=== PATIENT | female | born 1955 | race Caucasian/White ===

== ENCOUNTER 2023-12-28 09:14 | Inpatient (IN) | payer OTHER, MEDICAID, MEDICARE ==
[~2023-12-28] VITALS: Ht 154.9 cm; Wt 52.2 kg
[2023-12-28] VITALS (36 sets, daily range): BP systolic 63–146; BP diastolic 35–126; PULSE 106–136; RESP 16–54; TEMP 37.11408–38.1416; O2SAT 94–100
[2023-12-28] MEDS: SODIUM CHLORIDE 0.9% 1,000 ML IV ONE ×2 (09:35→10:40)
[2023-12-28 09:43] LABS: HEMOGLOBIN. 11.8 g/dL (12.0-16.0); MEAN CORPUSCULAR HEMOGLOBIN 27.8 pg (28.0-32.0); MEAN CORPUSCULAR HGB CONC 31.8 g/dL (31.0-37.0); MEAN CORPUSCULAR VOLUME 87.4 fL (81.0-99.0); MEAN PLATELET VOLUME 8.8 fl (7.4-10.4); PLATELET 243 x1000/uL (130-400); RED BLOOD CELL COUNT 4.24 mill/uL (4.2-5.4); RED CELL DISTRIBUTION WIDTH 13.8 % (11.6-14.6)
[2023-12-28 09:46] LABS: DIFFERENTIAL COMMENT 1
[2023-12-28 09:47] LABS: BG CARBOXYHEMOGLOBIN 0.5 % (0.5-1.5); BG HCO3 ACT 18.4 mmol/L (21.0-28.0); BG METHEMOGLOBIN 0.2 % (0.5-1.5); BG OXYHEMOGLOBIN 95.3 % (94.0-98.0); BG PCO2 32.7 mmHg (32.0-45.0); BG PH 7.369 (7.350-7.450); BG PO2 94.2 mmHg (83.0-108.0); BG SAMPLE SITE RIGHT BRACHIAL; BG TOTAL HEMOGLOBIN 10.5 g/dL (12.0-16.0); BG VENT MODE NASAL CANNULA
[2023-12-28 09:50] LABS: CHLORIDE 103 mEq/L (98-107); POTASSIUM 3.5 mEq/L (3.5-5.1); SODIUM 136 mEq/L (136-145)
[2023-12-28 09:51] LABS: CALCIUM 8.7 mg/dL (8.7-10.4); CARBON DIOXIDE 22 mEq/L (21-32)
[2023-12-28 09:56] LABS: CREATININE 1.3 mg/dL (0.6-1.0); UREA NITROGEN BLOOD 20 mg/dL (9-23)
[2023-12-28 09:58] LABS: BETA HYDROXYBUTYRATE 1.4 mMol/L (0.0-0.3)
[2023-12-28 10:13] LABS: INR 1.1; PROTHROMBIN TIME 12.2 sec (9.6-11.0)
[2023-12-28 10:20] LABS: ETHANOL BLOOD < 10 mg/dL (<10)
[2023-12-28 10:21] LABS: GLUCOSE 567 mg/dL (70-105); TROPONIN I HIGH SENSITIVITY 102 ng/L (3.0-34)
[2023-12-28] MEDS: CEFTRIAXONE 1GM/50ML 50 ML IV ONE (10:54)
[2023-12-28] MEDS: ASPIRIN 325MG TABLET PO ONE (11:05)
[2023-12-28 11:45] LABS: CLARITY URINE CLEAR (CLEAR); COLOR URINE YELLOW (YELLOW); GLUCOSE URINE 3+ (NEGATIVE); KETONES URINE TRACE (NEGATIVE); LEUKOCYTE ESTERASE URINE TRACE (NEGATIVE); NITRITE URINE NEGATIVE (NEGATIVE); OCCULT BLOOD URINE TRACE (NEGATIVE); PH URINE 5.5 (4.5-8.0); PROTEIN URINE TRACE (NEGATIVE); SPECIFIC GRAVITY URINE 1.025 (1.005-1.030); UROBILINOGEN URINE 0.2 E.U./dL (0.2-1.0)
[2023-12-28 12:00] LABS: PLATELET ESTIMATE NORMAL
[2023-12-28] MEDS: LACTATED RINGERS 1,000 ML IV STA (12:00)
[2023-12-28 12:05] LABS: *AMPHETAMINES SCREEN URINE NEGATIVE (NEGATIVE); *BARBITURATES SCREEN URINE NEGATIVE (NEGATIVE); *BENZODIAZEPINES SCREEN URINE NEGATIVE (NEGATIVE); *COCAINE SCREEN URINE NEGATIVE (NEGATIVE); CANNABINOID URINE SCREEN NEGATIVE (NEGATIVE); ECSTASY MDMA SCREEN URINE NEGATIVE (NEGATIVE); METHADONE URINE SCREEN NEGATIVE (NEGATIVE); OPIATES URINE SCREEN NEGATIVE (NEGATIVE); PHENCYCLIDINE URINE SCREEN NEGATIVE (NEGATIVE)
[2023-12-28 12:25] LABS: BACTERIA URINE 4+; SQUAMOUS EPITHELIAL CELL URINE 1+ /lpf (RARE/1+)
[2023-12-28 12:27] LABS: RBC URINE NONE SEEN /hpf (0-2)
[2023-12-28 13:06] LABS: TROPONIN I HIGH SENSITIVITY 112 ng/L (3.0-34)
[2023-12-28] MEDS: SODIUM CHLORIDE 0.9% 1,000 ML IV SCH ×2 (13:15→15:19)
[2023-12-28] MEDS ORDERED: GUAIFENESIN 200MG/10ML SUGAR FREE UDC PO PRN (13:15)
[2023-12-28] MEDS ORDERED: CLONIDINE 0.1MG TABLET PO PRN (13:15)
[2023-12-28] MEDS ORDERED: DOCUSATE SODIUM 100MG CAPSULE PO PRN (13:15)
[2023-12-28] MEDS ORDERED: IPRATROPIUM/ALBUTEROL 0.5-3(2.5)MG/3ML NEB HHN PRN (13:15)
[2023-12-28] MEDS ORDERED: DEXTROSE 50% WATER 50ML SYRINGE IV PRN (13:15)
[2023-12-28] MEDS ORDERED: ACETAMINOPHEN 325MG TABLET PO PRN ×2 (13:15)
[2023-12-28 14:08] LABS: IRON 14 ug/dL (50-170)
[2023-12-28 14:09] LABS: TRIGLYCERIDE 172 mg/dL (0-150)
[2023-12-28 14:10] LABS: LDL CHOLESTEROL 43 mg/dL (5-100)
[2023-12-28 14:11] LABS: ALBUMIN 2.9 g/dL (3.2-4.8); CHOLESTEROL 93 mg/dL (<200); HDL CHOLESTEROL 32 mg/dL (>65); PHOSPHORUS 3.2 mg/dL (2.5-4.9); TOTAL IRON BINDING CAPACITY 221 ug/dl (250-425)
[2023-12-28 14:13] LABS: T4 FREE 1.09 ng/dL (0.89-1.76); THYROID STIMULATING HORMONE 2.46 uIU/mL (0.55-4.78)
[2023-12-28] MEDS: INSULIN REGULAR (HUMULIN R) 1000UNITS/10ML VIAL IV ONE (14:14)
[2023-12-28] MEDS: INSULIN LISPRO 100 UNITS/ML SUBCUT SCH (14:22)
[2023-12-28] MEDS: NOREPINEPHRINE 8MG/250ML PMX 250 ML IV ONE (14:29)
[2023-12-28] MEDS ORDERED: VASOPRESSIN 20 UNIT in SODIUM CHLORIDE 0.9% 99 ML IV PRN (14:30)
[2023-12-28] MEDS ORDERED: NOREPINEPHRINE 8 MG in DEXT 5% WATER 242 ML IV PRN (15:00)
[2023-12-28 15:26] LABS: FERRITIN 118 ng/mL (10-291); FOLIC ACID (FOLATE) SERUM > 20.00 ng/mL (>5.38)
[2023-12-28 15:27] LABS: VITAMIN B12 SERUM 887 pg/mL (211-911)
[2023-12-28 15:34] LABS: CREATINE KINASE MB FRACTION 0.6 ng/mL (0.5-3.6)
[2023-12-28] MEDS: MAGNESIUM 2 G PREMIX 50 ML IV NR (16:48)
[2023-12-28] MEDS: MIDODRINE HCL 5MG TABLET PO SCH (16:48)
[2023-12-28] MEDS: NOREPINEPHRINE 8MG/250ML PMX 250 ML IV PRN (16:49)
[2023-12-28] MEDS: BLOOD SUGAR DIAGNOSTIC STRIP TEST SCH (17:22)
[2023-12-28] MEDS ORDERED: PHENYLEPHRINE 100 MG in DEXT 5% WATER 240 ML IV PRN (19:30)
[2023-12-28] MEDS ORDERED: NOREPINEPHRINE 8MG/250ML PMX 250 ML IV PRN (19:30)
[2023-12-28 20:42] LABS: HEPATITIS B SURFACE ANTIGEN NEGATIVE (Negative)
[2023-12-28 21:04] LABS: HEPATITIS C AB NON REACTIVE (Neg) (Negative)
[2023-12-28] MEDS: INSULIN GLARGINE 100 UNITS/ML SUBCUT SCH (23:39)
[2023-12-29] VITALS (89 sets, daily range): BP systolic 67–137; BP diastolic 41–88; PULSE 87–121; RESP 0–48; TEMP 36.6696–37.33632; O2SAT 93–100
[2023-12-29] MEDS ORDERED: PHENYLEPHRINE 100 MG in DEXT 5% WATER 240 ML IV PRN (00:30)
[2023-12-29 01:23] LABS: CREATINE KINASE MB FRACTION 1.2 ng/mL (0.5-3.6)
[2023-12-29] MEDS: KCL 20MEQ/100ML PREMIX 100 ML IV SCH (03:06)
[2023-12-29] MEDS: NOREPINEPHRINE 32 MG in DEXT 5% WATER 218 ML IV PRN (04:45)
[2023-12-29 07:27] LABS: HEMATOCRIT 35.5 % (36.0-48.0); HEMOGLOBIN 11.2 g/dL (12.0-16.0); MEAN CORPUSCULAR HEMOGLOBIN 27.9 pg (28.0-32.0); MEAN CORPUSCULAR HGB CONC 31.7 g/dL (31.0-37.0); MEAN CORPUSCULAR VOLUME 88.2 fL (81.0-99.0); PLATELET 145 x1000/uL (130-400); RED BLOOD CELL COUNT 4.02 mill/uL (4.2-5.4); RED CELL DISTRIBUTION WIDTH 14.4 % (11.6-14.6); WHITE BLOOD COUNT 27.7 x1000/uL (4.5-11.0)
[2023-12-29 07:34] LABS: BG BASE EXCESS -8.9 mmol/L (-2.0-3.0); BG CARBOXYHEMOGLOBIN 0.8 % (0.5-1.5); BG DEOXYHEMOGLOBIN 4.8 % (0.0-5.0); BG HCO3 ACT 14.2 mmol/L (21.0-28.0); BG METHEMOGLOBIN 0.2 % (0.5-1.5); BG OXYGEN SATURATION 95.2 % (94.0-98.0); BG OXYHEMOGLOBIN 94.2 % (94.0-98.0); BG PCO2 23.2 mmHg (32.0-45.0); BG PH 7.405 (7.350-7.450); BG PO2 78.6 mmHg (83.0-108.0); BG SAMPLE SITE RIGHT BRACHIAL; BG TOTAL HEMOGLOBIN 10.9 g/dL (12.0-16.0); BG VENT MODE NASAL CANNULA
[2023-12-29 07:42] LABS: CHLORIDE 120 mEq/L (98-107)
[2023-12-29 07:43] LABS: CALCIUM 8.3 mg/dL (8.7-10.4); CARBON DIOXIDE 16 mEq/L (21-32)
[2023-12-29] MEDS: VANCOMYCIN 1.25GM PMX (XELLIA) 250 ML IV SCH (07:43)
[2023-12-29 07:48] LABS: CREATININE 1.2 mg/dL (0.6-1.0); GLUCOSE 81 mg/dL (70-105); UREA NITROGEN BLOOD 24 mg/dL (9-23)
[2023-12-29 07:49] LABS: ALANINE AMINOTRANSFERASE 131 IU/L (10-49); ALBUMIN 3.1 g/dL (3.2-4.8); ASPARTATE AMINOTRANSFERASE 204 IU/L (<34)
[2023-12-29 07:50] LABS: BILIRUBIN TOTAL 0.2 mg/dL (0.1-1.0); PROTEIN TOTAL 5.6 g/dL (6.0-8.3)
[2023-12-29 07:52] LABS: SODIUM 149 mEq/L (136-145)
[2023-12-29] MEDS ORDERED: LIDOCAINE HCL 1% 10 MG/ML 10ML VIAL ONE (08:10)
[2023-12-29] MEDS: ASPIRIN 81MG TABLET PO SCH (08:13)
[2023-12-29] MEDS: PANTOPRAZOLE SODIUM 40 MG/VIAL IV SCH (08:13)
[2023-12-29] MEDS: CEFTRIAXONE 2GM/50ML 50 ML IV SCH (10:19)
[2023-12-29] MEDS ORDERED: CEFTRIAXONE 2GM/50ML 50 ML IV SCH (11:00)
[2023-12-29 17:09] LABS: TROPONIN I HIGH SENSITIVITY 281 ng/L (3.0-34)
[2023-12-29] MEDS: SODIUM CHLORIDE 0.45% 1,000 ML IV SCH (19:55)
[2023-12-30] VITALS (96 sets, daily range): BP systolic 76–138; BP diastolic 31–124; PULSE 66–109; RESP 9–38; TEMP 36.55848–37.39188; O2SAT 90–99
[2023-12-30 06:56] LABS: HEMOGLOBIN 10.1 g/dL (12.0-16.0); MEAN CORPUSCULAR HEMOGLOBIN 27.3 pg (28.0-32.0); MEAN CORPUSCULAR HGB CONC 31.5 g/dL (31.0-37.0); MEAN CORPUSCULAR VOLUME 86.7 fL (81.0-99.0); PLATELET 107 x1000/uL (130-400); RED BLOOD CELL COUNT 3.69 mill/uL (4.2-5.4); RED CELL DISTRIBUTION WIDTH 14.5 % (11.6-14.6); WHITE BLOOD COUNT 29.8 x1000/uL (4.5-11.0)
[2023-12-30 07:19] LABS: CHLORIDE 117 mEq/L (98-107); POTASSIUM 3.6 mEq/L (3.5-5.1); SODIUM 143 mEq/L (136-145)
[2023-12-30 07:20] LABS: CALCIUM 7.6 mg/dL (8.7-10.4); CARBON DIOXIDE 16 mEq/L (21-32)
[2023-12-30 07:25] LABS: CREATININE 1.1 mg/dL (0.6-1.0); GLUCOSE 99 mg/dL (70-105); UREA NITROGEN BLOOD 30 mg/dL (9-23)
[2023-12-30 07:27] LABS: ALANINE AMINOTRANSFERASE 97 IU/L (10-49); ALBUMIN 2.8 g/dL (3.2-4.8); ASPARTATE AMINOTRANSFERASE 111 IU/L (<34); BILIRUBIN TOTAL 0.3 mg/dL (0.1-1.0); PROTEIN TOTAL 5.3 g/dL (6.0-8.3)
[2023-12-30] MEDS: ONDANSETRON HCL 4MG/2ML INJ IV PRN (08:57)
[2023-12-30] MEDS ORDERED: VANCOMYCIN 750 MG in DEXT 5% WATER 100 ML IV SCH (09:00)
[2023-12-30] MEDS: PIPERACILLIN/TAZO 3.375G/50ML 50 ML IV SCH (22:11)
[2023-12-31] VITALS (83 sets, daily range): BP systolic 89–160; BP diastolic 43–82; PULSE 64–114; RESP 17–33; TEMP 36.44736–36.83628; O2SAT 90–99
[2023-12-31 11:10] LABS: HEMATOCRIT 31.7 % (36.0-48.0); MEAN CORPUSCULAR HEMOGLOBIN 26.8 pg (28.0-32.0); MEAN CORPUSCULAR HGB CONC 31.5 g/dL (31.0-37.0); MEAN CORPUSCULAR VOLUME 85.1 fL (81.0-99.0); PLATELET 87 x1000/uL (130-400); RED BLOOD CELL COUNT 3.73 mill/uL (4.2-5.4); RED CELL DISTRIBUTION WIDTH 14.9 % (11.6-14.6); WHITE BLOOD COUNT 18.2 x1000/uL (4.5-11.0)
[2023-12-31 11:18] LABS: CHLORIDE 115 mEq/L (98-107); POTASSIUM 3.3 mEq/L (3.5-5.1); SODIUM 140 mEq/L (136-145)
[2023-12-31 11:19] LABS: CARBON DIOXIDE 16 mEq/L (21-32)
[2023-12-31 11:20] LABS: CALCIUM 7.7 mg/dL (8.7-10.4)
[2023-12-31 11:24] LABS: CREATININE 0.7 mg/dL (0.6-1.0); GLUCOSE 170 mg/dL (70-105); UREA NITROGEN BLOOD 21 mg/dL (9-23)
[2024-01-01] VITALS (77 sets, daily range): BP systolic 67–141; BP diastolic 44–74; PULSE 64–101; RESP 16–29; TEMP 36.00288–36.9474; O2SAT 91–100
[2024-01-01 05:49] LABS: BASOPHILS % 0.5 % (0.0-2.0); DIFFERENTIAL COMMENT 0; EOSINOPHILS % 2.3 % (0.0-5.0); HEMATOCRIT. 29.1 % (36.0-48.0); HEMOGLOBIN. 9.5 g/dL (12.0-16.0); LYMPHOCYTES % 12.8 % (20.0-50.0); MEAN CORPUSCULAR HEMOGLOBIN 27.7 pg (28.0-32.0); MEAN CORPUSCULAR HGB CONC 32.6 g/dL (31.0-37.0); MEAN CORPUSCULAR VOLUME 84.9 fL (81.0-99.0); MEAN PLATELET VOLUME 9.2 fl (7.4-10.4); MONOCYTES % 8.2 % (2.0-8.0); NEUTROPHILS % 76.2 % (40.0-76.0); PLATELET 85 x1000/uL (130-400); RED BLOOD CELL COUNT 3.43 mill/uL (4.2-5.4); RED CELL DISTRIBUTION WIDTH 14.9 % (11.6-14.6); WHITE BLOOD COUNT 10.6 x1000/uL (4.5-11.0)
[2024-01-01 06:13] LABS: CHLORIDE 117 mEq/L (98-107); POTASSIUM 3.1 mEq/L (3.5-5.1); SODIUM 143 mEq/L (136-145)
[2024-01-01 06:14] LABS: CALCIUM 8.1 mg/dL (8.7-10.4); CARBON DIOXIDE 21 mEq/L (21-32)
[2024-01-01 06:19] LABS: CREATININE 0.6 mg/dL (0.6-1.0); GLUCOSE 105 mg/dL (70-105); UREA NITROGEN BLOOD 16 mg/dL (9-23)
[2024-01-01 06:21] LABS: PHOSPHORUS 2.2 mg/dL (2.5-4.9)
[2024-01-01] MEDS: KCL 20MEQ/100ML PREMIX 100 ML IV SCH (09:26)
[2024-01-01] MEDS: MAGNESIUM 2 G PREMIX 50 ML IV NR (09:26)
[2024-01-01] MEDS: MIDODRINE HCL 5MG TABLET PO SCH (12:10)
[2024-01-02] VITALS (46 sets, daily range): BP systolic 91–149; BP diastolic 51–97; PULSE 63–92; RESP 15–33; TEMP 36.114–37.16964; O2SAT 70–98
[2024-01-02 06:13] LABS: BASOPHILS % 0.9 % (0.0-2.0); EOSINOPHILS % 2.8 % (0.0-5.0); HEMATOCRIT. 31.8 % (36.0-48.0); HEMOGLOBIN. 10.3 g/dL (12.0-16.0); LYMPHOCYTES % 13.7 % (20.0-50.0); MEAN CORPUSCULAR HGB CONC 32.4 g/dL (31.0-37.0); MEAN CORPUSCULAR VOLUME 86.3 fL (81.0-99.0); MEAN PLATELET VOLUME 9.4 fl (7.4-10.4); MONOCYTES % 10.8 % (2.0-8.0); NEUTROPHILS % 71.8 % (40.0-76.0); PLATELET 97 x1000/uL (130-400); RED BLOOD CELL COUNT 3.69 mill/uL (4.2-5.4); RED CELL DISTRIBUTION WIDTH 15.1 % (11.6-14.6); WHITE BLOOD COUNT 7.9 x1000/uL (4.5-11.0)
[2024-01-02 06:27] LABS: CHLORIDE 113 mEq/L (98-107); POTASSIUM 3.9 mEq/L (3.5-5.1); SODIUM 139 mEq/L (136-145)
[2024-01-02 06:28] LABS: CALCIUM 7.9 mg/dL (8.7-10.4); CARBON DIOXIDE 20 mEq/L (21-32)
[2024-01-02 06:33] LABS: CREATININE 0.6 mg/dL (0.6-1.0); GLUCOSE 163 mg/dL (70-105); UREA NITROGEN BLOOD 8 mg/dL (9-23)
[2024-01-02 06:35] LABS: PHOSPHORUS 2.9 mg/dL (2.5-4.9)
[2024-01-02] MEDS: MAGNESIUM 2 G PREMIX 50 ML IV ONE (13:23)
[2024-01-02 16:07] LABS: PROTEIN BODY FLUID < 2.0 gm/dL
[2024-01-02 17:31] LABS: BODY FLUID MONOCYTES 8 %
[2024-01-02 17:32] LABS: BODY FLUID RBC 874 /cu mm (0-2000); BODY FLUID WBC 549 /cu mm (0-200)
[2024-01-03] VITALS (31 sets, daily range): BP systolic 100–147; BP diastolic 47–66; PULSE 60–91; RESP 18–32; TEMP 36.3918–36.9474; O2SAT 88–99
[2024-01-03 06:42] LABS: BASOPHILS % 0.5 % (0.0-2.0); EOSINOPHILS % 1.8 % (0.0-5.0); HEMATOCRIT. 32.3 % (36.0-48.0); LYMPHOCYTES % 10.8 % (20.0-50.0); MEAN CORPUSCULAR HEMOGLOBIN 27.3 pg (28.0-32.0); MEAN CORPUSCULAR HGB CONC 31.1 g/dL (31.0-37.0); MEAN CORPUSCULAR VOLUME 87.9 fL (81.0-99.0); MEAN PLATELET VOLUME 9.2 fl (7.4-10.4); MONOCYTES % 10.2 % (2.0-8.0); NEUTROPHILS % 76.7 % (40.0-76.0); PLATELET 163 x1000/uL (130-400); RED BLOOD CELL COUNT 3.67 mill/uL (4.2-5.4); RED CELL DISTRIBUTION WIDTH 15.3 % (11.6-14.6)
[2024-01-03 06:51] LABS: CHLORIDE 113 mEq/L (98-107); POTASSIUM 3.4 mEq/L (3.5-5.1); SODIUM 142 mEq/L (136-145)
[2024-01-03 06:52] LABS: CALCIUM 8.5 mg/dL (8.7-10.4); CARBON DIOXIDE 19 mEq/L (21-32)
[2024-01-03 06:57] LABS: CREATININE 0.6 mg/dL (0.6-1.0); GLUCOSE 122 mg/dL (70-105)
[2024-01-03 06:58] LABS: LACTATE DEHYDROGENASE 172 IU/L (120-246)
[2024-01-03 06:59] LABS: PHOSPHORUS 3.6 mg/dL (2.5-4.9)
[2024-01-03 07:14] LABS: UREA NITROGEN BLOOD < 5 mg/dL (9-23)
[2024-01-03] MEDS: POTASSIUM CHLORIDE 20MEQ TABLET SR PO NR (08:52)
[2024-01-03] MEDS: MAGNESIUM 2 G PREMIX 50 ML IV NR (11:47)
== END 2024-01-03 18:27 | DRG 871 ==
LOC: ER 09:27 → EDBEDREQSVC 12:48 → EDBEDREQ 12:48 → EDBEDREQTM 12:48 → EDBEDREQSVC 14:50 → CVICU 15:57 → 8WST 01-03 14:03
PROVIDERS: ADMIT Internal Medicine; ATTEND Internal Medicine
PROC: 02HV33Z Insertion of Infusion Device into Superior Vena Cava, Percutaneous Approach (ICD-10-PCS; 2023-12-29)
PROC: B548ZZA Ultrasonography of Superior Vena Cava, Guidance (ICD-10-PCS; 2023-12-29)
PROC: 0W9930Z Drainage of Right Pleural Cavity with Drainage Device, Percutaneous Approach (ICD-10-PCS; principal; 2024-01-02)
DX: A41.51 Sepsis due to Escherichia coli [E. coli] (principal); E11.10 Type 2 diabetes mellitus with ketoacidosis without coma; R65.21 Severe sepsis with septic shock; J96.01 Acute respiratory failure with hypoxia; I21.4 Non-ST elevation (NSTEMI) myocardial infarction; N39.0 Urinary tract infection, site not specified; K92.0 Hematemesis; E87.0 Hyperosmolality and hypernatremia; J90 Pleural effusion, not elsewhere classified; N17.9 Acute kidney failure, unspecified; Z20.822 Contact with and (suspected) exposure to COVID-19; I10 Essential (primary) hypertension; I25.10 Atherosclerotic heart disease of native coronary artery without angina pectoris; E83.42 Hypomagnesemia; D64.9 Anemia, unspecified; Z79.4 Long term (current) use of insulin; Z79.82 Long term (current) use of aspirin
CPT/HCPCS: 32555; 36415; 36573; 36600; 71045; 74176; 76604; 80048; 80053; 80061; 80305; 80320; 81003; 82010; 82040; 82375; 82553; 82607; 82728; 82746; 82805; 82962; 83036; 83540; 83550; 83605; 83615; 83735; 83880; 83930; 83986; 84100; 84145; 84439; 84443; 84484; 85025; 85027; 86705; 87077; 87186; 87340; 87426; 93005; 93306; 93970; 99291; C1725; C1769; J0696; J1815; J2405; J2470; J2543; J3370; J3475; J3480; J3490; J7030; J7060; J7120; G0480